=== PATIENT | female | born 1970 | race Two or more races ===

== ENCOUNTER 2021-03-21 16:58 | Emergency (ER) | payer OTHER ==
[~2021-03-21] VITALS: Ht 152.4 cm; Wt 143.8 kg
[~2021-03-21 16:58] MED LIST: SULFAMETHOXAZOL1 TA6 PO
[2021-03-21] MEDS ORDERED: MEDROL4 MG (17:18)
[2021-03-21] MEDS ORDERED: NAPR500T14 (17:18)
[2021-03-21] MEDS ORDERED: NORFLEX100MG (17:19)
[2021-03-22] MEDS ORDERED: ULTRACET PO (06:16)
[2021-03-22] MEDS ORDERED: ORPHENADRINE C100 MG PO (06:16)
[2021-03-22] MEDS ORDERED: KETO10TA2 PO (06:16)
== END 2021-03-22 06:26 | disposition home or self-care (01) ==
LOC: ER 16:58
DX: R10.32 Left lower quadrant pain (principal)

== ENCOUNTER 2021-03-24 13:06 | Emergency (ER) | payer OTHER ==
[~2021-03-24] VITALS: Ht 152.4 cm; Wt 143.8 kg
[~2021-03-24 13:06] MED LIST changes: +KETO10TA2 PO; +MEDROL4 MG; +NAPR500T14; +NORFLEX100MG; +ORPHENADRINE C100 MG PO; +ULTRACET PO
== END 2021-03-25 00:10 | disposition home or self-care (01) ==
LOC: ER 13:06
DX: R10.32 Left lower quadrant pain (principal)

== ENCOUNTER 2021-03-28 12:42 | Inpatient (IN) | payer OTHER ==
[~2021-03-28] VITALS: Ht 152.4 cm; Wt 136.1 kg
[2021-03-28] MEDS ORDERED: BENTYL10 MG/1 ML (12:50)
--- NOTE | 2021-03-28 12:51 | NUR ---
SE RECIBE PACIENTE FEMENINA DE 50 ANOS DE EDAD DESPIERTA Y ALERTA CON QUEJA PRINCIPAL DE DOLOR ABDOMINAL COMENZANDO ALREDEDOR DE HACE 2 SEMANAS EN EL LADO SCOTTY. REFIERE NAUSEAS Y DIARREAS.
[2021-03-28] MEDS ORDERED: FLAGYL500MG (12:52)
[2021-03-28] MEDS ORDERED: CIPRO500 MG (12:52)
[2021-03-31] MEDS ORDERED: VITAMIN D3250 MCG (13:24)
== END 2021-04-07 15:34 | disposition home or self-care (01) | DRG 392 ==
LOC: ER 12:42 → MEDI 23:26
PROVIDERS: ADMIT Internal Medicine; ATTEND Internal Medicine
PROC: BR39ZZZ Magnetic Resonance Imaging (MRI) of Lumbar Spine (ICD-10-PCS; principal; 2021-04-04)
DX: K57.32 Diverticulitis of large intestine without perforation or abscess without bleeding (principal); E66.01 Morbid (severe) obesity due to excess calories; L40.50 Arthropathic psoriasis, unspecified; F43.22 Adjustment disorder with anxiety; R59.0 Localized enlarged lymph nodes
CPT/HCPCS: 72149